=== PATIENT | female | born 1965 | race Caucasian/White ===

== ENCOUNTER → 2019-04-13 | Outpatient (CLI) | payer OTHER ==
--- NOTE | 2019-04-14 19:59 | MAM ---
EXAM DESCRIPTION: 3D Screening BILATERAL : Digital Mammography. CLINICAL HISTORY: 53 years Female Screening . No complaints. No personal or family history of breast cancer. Childbirth. Postmenopausal 25 years. HRT 5 or more years ago.. Lifetime risk of developing breast cancer (Tyrer-Cuzick model)(%): 7.5. COMPARISON: 2-D digital screening bilateral mammography 12/26/2012. TECHNIQUE: Bilateral CC and MLO projection full-field images, digital tomosynthesis mammographic technique. Bilateral digital 2-D full-field MLO images. CAD not available for tomosynthesis or 2-D images. FINDINGS: The breast parenchymal density pattern is: Scattered areas of fibroglandular density. No skin thickening or nipple retraction. The most dense tissues is in the anterior half of both breasts with scattered microcalcifications. Mild retraction of the dense fiber glandular tissues bilaterally compared to the prior study. No new focal, stellate mass or density, focal asymmetry , and no suspicious microcalcifications bilaterally. IMPRESSION: Benign exam. BIRAD CATEGORY: 2 BENIGN FINDINGS. RECOMMENDATIONS: FOLLOW UP: Routine digital bilateral mammographic screening, one year interval from March 2019. Written communication explaining the IMPRESSION and follow-up, will be mailed to the patient and referring health care provider. According to the [employer], yearly mammograms are recommended starting at age 40 and continuing as long as a woman is in good health. Any breast change noted on a breast self-exam should be reported promptly to the patient's healthcare provider. Breast MRI is recommended for women with an approximately 20-25% or greater lifetime risk of breast cancer, including women with a strong family history of breast or ovarian cancer and women who have been treated for Hodgkin's disease. A negative mammographic report should not delay tissue diagnosis in patients with significant clinical history or physical findings. Extremely dense breast tissue limits the sensitivity of digital mammography. Electronically signed by: Charles Macdonald MD 04/14/2019 7:57 PM CDT
== END ==
LOC: MAMMO 10:00
PROVIDERS: ATTEND Nurse Practitioner Family
DX: Z12.31 Encounter for screening mammogram for malignant neoplasm of breast (principal)

== ENCOUNTER 2020-02-12 12:52 | Emergency (ER) | payer OTHER ==
[2020-02-12] MEDS ORDERED: LIDOCAINE 1% 10 ML VIAL INJ ONE (13:27)
--- NOTE | 2020-02-12 14:47 | ED.PDOC ---
History of Present Illness - General Chief Complaint: Laceration Stated Complaint: laceration to index finger of LH Time Seen by Provider: 02/12/20 14:44 Source: patient, RN notes reviewed, Vital Signs reviewed Exam Limitations: no limitations - History of Present Illness Initial Comments: Patient is a 54-year-old white female who presents with complaints of left index laceration. Patient was preparing lunch and was slicing potatoes and cut her left index finger. Patient complains of pain and bleeding. She denies any numbness or tingling. The pain is burning in nature. Worse with palpation. Nonradiating. Patient is neurovascularly intact distally. The pain is moderate in intensity. Occurred: just prior to arrival Severity: moderate Pain Location: upper extremity - Left index finger dorsal aspect. Method of Injury: other - Cut with a knife Improving Factors: nothing Worsening Factors: movement Loss of Consciousness: no loss of consciousness Associated Symptoms (Fall): denies symptoms Allergies/Adverse Reactions: Allergies Codeine Allergy (Verified 06/29/13 07:10) Corticosteroids Allergy (Verified 05/14/14 09:36) Hydrocodone Allergy (Verified 06/29/13 07:10) Penicillins Allergy (Verified 06/29/13 07:10) Tramadol Allergy (Verified 06/29/13 07:10) Home Medications: Ambulatory Orders Atenolol 1 tab PO DAILY #0 06/29/13 Estropipate 0.75 mg PO DAILY 05/14/14 Estropipate 1.5 mg PO BEDTIME 05/14/14 Losartan Potassium & Hydrochlo [Losartan Potassium/Hydroc 100-25 mg] 1 tab PO DAILY 05/14/14 Rosuvastatin Calcium [Crestor] 10 mg PO BEDTIME 05/14/14 Sertraline HCl 50 mg PO BEDTIME 05/14/14 Review of Systems - Review of Systems Constitutional: States: no symptoms reported, see HPI. Denies: chills, fever, malaise EENTM: States: no symptoms reported. Denies: blurred vision, double vision Respiratory: States: no symptoms reported. Denies: cough, short of breath, stridor, wheezing Cardiology: States: no symptoms reported. Denies: chest pain, edema, palpitations, syncope Gastrointestinal/Abdominal: States: no symptoms reported. Denies: abdominal pain, constipation, diarrhea, nausea, vomiting Genitourinary: States: no symptoms reported Musculoskeletal: States: no symptoms reported. Denies: back pain, joint pain, neck pain Skin: States: see HPI, other - 2 and a centimeter laceration on the dorsal aspect of the left index finger, mid finger. Neurological: States: no symptoms reported. Denies: numbness, paresthesia, tingling Endocrine: States: no symptoms reported Hematologic/Lymphatic: States: no symptoms reported All other Systems: Reviewed and Negative Past Medical History (General) - Patient Medical History Hx Seizures: No Hx Stroke: No Hx Asthma: No Hx of COPD: No Hx Cardiac Disorders: Yes Hx Congestive Heart Failure: No Hx Pacemaker: No Hx Hypertension: Yes Hx Diabetes: No Hx MRSA: No - Social History Hx Alcohol Use: No Hx Substance Use: No Hx Physical Abuse: No Hx Emotional Abuse: No Family Medical History - Family History Mother Family History: No Known Physical Exam - Physical Exam General Appearance: Alert, Anxious, Comfortable, Well Developed, Well Groomed, Well Hydrated Head Injury: no evidence of injury Eye Exam: bilateral normal ENT Exam: hearing grossly normal, no dental injury Neck Exam: non-tender, full range of motion, normal alignment, normal inspection Cardiovascular/Respiratory: regular rate, rhythm, no M/R/G, normal peripheral pulses, no JVD, normal breath sounds Gastrointestinal/Abdominal: normal bowel sounds, non tender, soft, no or ganomegaly Back Exam: normal inspection, no CVA tenderness, no vertebral tenderness Extremity Exam: normal range of motion, other - Patient with a 2-1/2 cm laceration to the dorsal aspect of the right mid index finger. Bleeding is controlled. She is neurovascularly intact distally. There are no tendon lacerations. Patient with full range of motion of the finger. 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 Please see extremity exam for full description. - Shereen Coma Score Best Eye Response (Shereen): (4) open spontaneously Best Verbal Response (Ponce): (5) oriented Best Motor Response (Ponce): (6) obeys commands Shereen Total: 15 Progress - Progress Progress: Differential diagnosis: Skin laceration, tendon laceration, neurovascular bundle laceration, open fracture among others. 02/12/20 14:48 Patient tolerated suture repair of the skin laceration well. There were no complications or difficulties. Plan on discharge home with follow-up in 2 weeks for suture removal. Patient will require a tetanus shot as she has not had one in a long time. Plan on discharge home at this time. Patient agrees and understands with the plan of care. John Becerra M.D. #[id number] Procedures - Laceration/Wound Repair Left Dorsal Finger Wound Length (cm): 2.5 Wound's Depth, Shape: superficial, linear Wound Explored: clean Irrigated w/ Saline (cc's): 250 Betadine Prep?: No Anesthesia: 1% Lidocaine Volume Anesthetic (cc's): 5 Wound Debrided: minimal Wound Repaired With: sutures Suture Size/Type: 4:0, prolene Number of Sutures: 5 Sterile Dressing Applied?: Yes Splint Applied?: No Sling Applied?: No Progress: Estimated blood loss was less than 5 mL's. Patient tolerated the procedure well. Patient underwent a digital block prior to the procedure. For the digital block, skin was prepped with Betadine at the base of the left index finger. Once the Betadine had dried, a 27-gauge needle was introduced at the base of the lateral aspect of the index finger and a couple of cc of lidocaine were injected. A ring block was performed. Patient tolerated this procedure well. There was no complications and obtained total analgesia of the distal finger.. Departure - Departure Clinical Impression: Laceration, Accidental laceration Time of Disposition: 14:52 Disposition: Discharge to Home or Self Care Condition: Good Departure Forms: ED Discharge - Pt. Copy, Patient Portal Self Enrollment Instructions: DI for Laceration Repair, DI for Laceration Repair -- Simple Diet: resume usual diet Activity: increase activity as tolerated Referrals: Beverley Strange NP [Primary Care Provider] - 1-2 Weeks Home Medications: Ambulatory Orders Atenolol 1 tab PO DAILY #0 06/29/13 Estropipate 0.75 mg PO DAILY 05/14/14 Estropipate 1.5 mg PO BEDTIME 05/14/14 Losartan Potassium & Hydrochlo [Losartan Potassium/Hydroc 100-25 mg] 1 tab PO DAILY 05/14/14 Rosuvastatin Calcium [Crestor] 10 mg PO BEDTIME 05/14/14 Sertraline HCl 50 mg PO BEDTIME 05/14/14 Additional Instructions: Patient to return to the ED or her primary care physician in 2 weeks for suture removal.
[2020-02-12] MEDS ORDERED: TETANUS,DIPHTHERIA,PERTUSSIS 1 EA SYG IM ONE (14:54)
[2020-02-12] MEDS ORDERED: NEOMYCIN-BACITRACIN-POLYMYXIN 0.9 GM UD TOP ONE (15:07)
[2020-02-12 15:13] VITALS: BP 136/85; TEMP 97.1; O2SAT 100
== END 2020-02-12 15:10 | disposition home or self-care (01) ==
LOC: ER 12:52
DX: S61.211A Laceration without foreign body of left index finger without damage to nail, initial encounter (principal); I10 Essential (primary) hypertension; W26.0XXA Contact with knife, initial encounter; Y92.9 Unspecified place or not applicable; Y93.G1 Activity, food preparation and clean up

== ENCOUNTER 2020-03-05 21:37 | Emergency (ER) | payer OTHER ==
[2020-03-05] MEDS ORDERED: CHLORHEXIDINE GLUCONATE 4 % 15 ML UD TOP ONE (21:50)
--- NOTE | 2020-03-05 22:25 | ED.PDOC ---
History of Present Illness - General Chief Complaint: General Stated Complaint: bleeding from a scratch to thigh Time Seen by Provider: 03/05/20 22:23 Source: patient, RN notes reviewed, Vital Signs reviewed Exam Limitations: no limitations - History of Present Illness Initial Comments: Patient is a 54-year-old white female who presents with complaints of left lateral leg bleeding at the knee. Patient has a varicose vein there and scratched it earlier and it started bleeding and she could not get it stopped. Patient denies being on any blood thinners. Patient only complains of some mild burning sensation there. Intensity is mild, there is no radiation, nothing makes it worse or better. Timing/Duration: 1-3 hours Severity: mild Improving Factors: nothing Worsening Factors: nothing Associated Symptoms: denies symptoms Allergies/Adverse Reactions: Allergies Codeine Allergy (Verified 06/29/13 07:10) Corticosteroids Allergy (Verified 05/14/14 09:36) Hydrocodone Allergy (Verified 06/29/13 07:10) Penicillins Allergy (Verified 06/29/13 07:10) Tramadol Allergy (Verified 06/29/13 07:10) Home Medications: Ambulatory Orders Atenolol 1 tab PO DAILY #0 06/29/13 Estropipate 0.75 mg PO DAILY 05/14/14 Estropipate 1.5 mg PO BEDTIME 05/14/14 Losartan Potassium & Hydrochlo [Losartan Potassium/Hydroc 100-25 mg] 1 tab PO DAILY 05/14/14 Rosuvastatin Calcium [Crestor] 10 mg PO BEDTIME 05/14/14 Sertraline HCl 50 mg PO BEDTIME 05/14/14 Review of Systems - Review of Systems Constitutional: States: no symptoms reported, see HPI. Denies: chills, fever, malaise EENTM: States: no symptoms reported Respiratory: States: no symptoms reported. Denies: cough, short of breath, stridor Cardiology: States: no symptoms reported. Denies: chest pain, palpitations, syncope Gastrointestinal/Abdominal: States: no symptoms reported. Denies: abdominal pain, diarrhea, nausea, vomiting Genitourinary: States: no symptoms reported Musculoskeletal: States: no symptoms reported. Denies: back pain, neck pain Skin: States: see HPI, other - Eating from a varicose vein. Neurological: States: no symptoms reported. Denies: tingling, tremors, weakness Endocrine: States: no symptoms reported Hematologic/Lymphatic: States: no symptoms reported All other Systems: No Change from Baseline Past Medical History (General) - Patient Medical History Hx Seizures: No Hx Stroke: No Hx Dementia: No Hx Asthma: No Hx of COPD: No Hx Cardiac Disorders: Yes Hx Congestive Heart Failure: No Hx Pacemaker: No Hx Hypertension: Yes Hx Thyroid Disease: No Hx Diabetes: No Hx Gastroesophageal Reflux: No Hx Renal Disease: No Hx Cancer: No Hx of HIV: No Hx Hepatitis C: No Hx MRSA: No Surgical History: appendectomy, tonsillectomy, Hysterectomy - Vaccination History Hx Tetanus, Diphtheria Vaccination: Yes Hx Influenza Vaccination: No Hx Pneumococcal Vaccination: No Immunizations Up to Date: Yes - Social History Hx Tobacco Use: No Hx Chewing Tobacco Use: No Hx Alcohol Use: No Hx Substance Use: No Hx Substance Use Treatment: No Hx Depression: Yes Feels Threatened In Home Enviroment: No Feels Threatened In a Relationship: No Hx Physical Abuse: No Hx Emotional Abuse: No Hx Suspected Abuse: No - Activities of Daily Living Hospice Agency (if applicable):: None - Female History Patient is a Female of Child Bearing Age (10 -59 yrs old): No - hyst Family Medical History - Family History Mother Family History: No Known Physical Exam - Physical Exam General Appearance: Alert, Comfortable, Obese, Well Developed, Well Groomed, Well Hydrated, Well Nourished Eye Exam: bilateral normal Ears, Nose, Throat: hearing grossly normal, normal ENT inspection, normal pharynx Neck: non-tender, full range of motion, supple, normal inspection Respiratory: chest non-tender, lungs clear, normal breath sounds, no respiratory distress, no accessory muscle use Cardiovascular/Chest: normal peripheral pulses, regular rate, rhythm, no edema Peripheral Pulses: radial,right: 2+, radial,left: 2+ Gastrointestinal/Abdominal: normal bowel sounds, non tender, soft Back Exam: normal inspection, no CVA tenderness, no vertebral tenderness Extremity: normal range of motion, non-tender, other - Mild venous bleeding from the left lateral knee at the site of a varicose vein. Bleeding was controlled with a compression bandage. 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 03/05/20 22:26 Bleeding is controlled with compression bandage. Plan on discharge home with follow-up with her surgeon later this week. Patient is scheduled for varicose surgery in [place]. I discussed this plan of care with the patient she voices understanding and agreement. John Becerra M.D. #[id number] Departure - Departure Clinical Impression: Bleeding from varicose veins of left lower extremity Varicose veins of both lower extremities Qualifiers: Varicose vein complication: unspecified Qualified Code(s): I83.93 - Asymptomatic varicose veins of bilateral lower extremities Time of Disposition: 22:27 Disposition: Discharge to Home or Self Care Condition: Good Departure Forms: ED Discharge - Pt. Copy, Patient Portal Self Enrollment Instructions: Varicose Veins (DC) Diet: resume usual diet Activity: increase activity as tolerated Referrals: Beverley Strange NP [Primary Care Provider] - 1-5 Days Home Medications: Ambulatory Orders Atenolol 1 tab PO DAILY #0 06/29/13 Estropipate 0.75 mg PO DAILY 05/14/14 Estropipate 1.5 mg PO BEDTIME 05/14/14 Losartan Potassium & Hydrochlo [Losartan Potassium/Hydroc 100-25 mg] 1 tab PO DAILY 05/14/14 Rosuvastatin Calcium [Crestor] 10 mg PO BEDTIME 05/14/14 Sertraline HCl 50 mg PO BEDTIME 05/14/14
[2020-03-05 23:37] VITALS: BP 105/59; TEMP 97.2; O2SAT 99
== END 2020-03-05 22:40 | disposition home or self-care (01) ==
LOC: ER 21:37
DX: I83.93 Asymptomatic varicose veins of bilateral lower extremities (principal); I10 Essential (primary) hypertension

== ENCOUNTER → 2020-05-31 | Outpatient (CLI) | payer OTHER ==
--- NOTE | 2020-06-03 13:58 | MAM ---
EXAM DESCRIPTION: 3D Screening BILATERAL : Digital Mammography. CLINICAL HISTORY: 54 years Female ANNUAL SCREENING . No complaints. No family history breast cancer. Menarche age 10. Childbirth age 19. Menopause age unknown. HRT current user.. Lifetime risk of developing breast cancer (Tyrer-Cuzick model)(%): 7.9. COMPARISON: Bilateral screening digital breast tomosynthesis March 2019. TECHNIQUE: Bilateral CC and MLO projection full-field images, digital tomosynthesis mammographic technique Bilateral digital 2-D full-field MLO images. CAD available for 2-D images. FINDINGS: The breast parenchymal density pattern is: Heterogeneously dense breast tissue, which may obscure small masses. No skin thickening or nipple retraction. Dense fibroglandular tissue again noted in the anterior two thirds of the breast. Solitary microcalcifications. Left axillary lymph nodes. Coarse calcifications bilaterally. Intramammary lymph nodes. No new focal, stellate mass or density, focal asymmetry , and no suspicious microcalcifications bilaterally. Stable mammograms compared to prior study. IMPRESSION: Benign exam. BIRAD CATEGORY: 2 BENIGN FINDINGS. RECOMMENDATIONS: FOLLOW UP: Routine digital bilateral mammographic screening, one year interval from May 2020. Written communication explaining the IMPRESSION and follow-up, will be mailed to the patient and referring health care provider. According to the [employer], yearly mammograms are recommended starting at age 40 and continuing as long as a woman is in good health. Any breast change noted on a breast self-exam should be reported promptly to the patient's healthcare provider. Breast MRI is recommended for women with an approximately 20-25% or greater lifetime risk of breast cancer, including women with a strong family history of breast or ovarian cancer and women who have been treated for Hodgkin's disease. A negative mammographic report should not delay tissue diagnosis in patients with significant clinical history or physical findings. Extremely dense breast tissue limits the sensitivity of digital mammography. Electronically signed by: Charles Macdonald MD 06/03/2020 1:57 PM CDT
== END ==
LOC: MAMMO 11:11
PROVIDERS: ATTEND General Practice
DX: Z12.31 Encounter for screening mammogram for malignant neoplasm of breast (principal)

== ENCOUNTER 2020-09-27 15:24 | Observation (INO) | payer OTHER ==
[2020-09-27] MEDS ORDERED: SODIUM CHLORIDE 0.9% (FLUSH) 10 ML SYG IV PRN ×2 (15:32→22:27)
[2020-09-27] MEDS ORDERED: SODIUM CHLORIDE 0.9% 1000ML 1,000 ML IVS ONE ×2 (15:34→17:15)
--- NOTE | 2020-09-27 15:34 | ED.PDOC ---
History of Present Illness - General Time Seen by Provider: 09/27/20 15:32 Source: patient - History of Present Illness Initial Comments: Seen shortly after ED arrival at 16:10. 55-year-old female who presents with chief complaint of shortness of breath and fever. Patient reports acute illness 5 days ago with gradual worsening. Now reports constant shortness of breath which is marked even at rest, worsens with just short ambulation around her home and having to stop and rest. She additionally reports frequent nonproductive cough, intermittent fevers with T- max 101 Fahrenheit at home, intermittent watery diarrhea approximately 7 episodes per day for the past 5 days, intermittent generalized abdominal discomfort, poor appetite, loss of taste and smell, mild sore throat, headaches, body aches, nausea without emesis, intermittent tightness in the center of her chest which is worse with coughing. She has not taken any medicine for her symptoms. Reports recently she was around family who have tested positive for COVID-19. PCP is Thao Strange at Dr. Romero's office. Allergies/Adverse Reactions: Allergies Codeine Allergy (Verified 09/27/20 16:04) Corticosteroids Allergy (Verified 09/27/20 16:04) Hydrocodone Allergy (Verified 09/27/20 16:04) Penicillins Allergy (Verified 09/27/20 16:04) Tramadol Allergy (Verified 09/27/20 16:04) Home Medications: Ambulatory Orders Atenolol 50 mg PO DAILY 09/27/20 Review of Systems - Review of Systems Review of Systems: 09/27/20 16:35 as per HPI All other Systems: Reviewed and Negative Past Medical History (General) - Patient Medical History Hx Seizures: No Hx Stroke: No Hx Dementia: No Hx Asthma: No Hx of COPD: No Hx Cardiac Disorders: Yes Hx Congestive Heart Failure: No Hx Pacemaker: No Hx Hypertension: Yes Hx Thyroid Disease: No Hx Diabetes: No Hx Gastroesophageal Reflux: No Hx Renal Disease: No Hx Cancer: No Hx of HIV: No Hx Hepatitis C: No Hx MRSA: No - Vaccination History Hx Tetanus, Diphtheria Vaccination: Yes Hx Influenza Vaccination: No Hx Pneumococcal Vaccination: No - Social History Hx Tobacco Use: No Hx Chewing Tobacco Use: No Hx Alcohol Use: No Hx Substance Use: No Hx Substance Use Treatment: No Hx Depression: Yes Hx Physical Abuse: No Hx Emotional Abuse: No Hx Suspected Abuse: No Family Medical History - Family History Mother Family History: No Known Physical Exam - Physical Exam General Appearance: Alert, Comfortable, Obese Eye Exam: bilateral normal Ears, Nose, Throat: hearing grossly normal, normal ENT inspection, normal pharynx Neck: non-tender, full range of motion, supple, normal inspection Respiratory: chest non-tender, lungs clear, normal breath sounds, no respiratory distress, no accessory muscle use Cardiovascular/Chest: normal peripheral pulses, regular rate, rhythm, no edema, no gallop, no JVD, no murmur Peripheral Pulses: radial,right: 2+, radial,left: 2+ Gastrointestinal/Abdominal: non tender, soft, abnormal bowel sounds - increased bowel sounds Back Exam: normal inspection, no CVA tenderness, no vertebral tenderness Extremity: normal range of motion, non-tender, normal inspection, no calf tenderness, normal capillary refill, pedal edema - 1+ BL LE non-pitting edema noted 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 Consider COVID-19, influenza, other viral infection. Consider also strep pharyngitis, pneumonia, CHF, ACS, UTI, gastroenteritis, colitis, other -Patient with 99% SPO2 on room air, no acute respiratory distress, blood pressure noted elevated 200/100s on arrival, reports intermittent chest tightness at home but none currently -Obtain cardiac work-up, rapid Covid and flu testing, blood work -Place PIV, 1 L normal saline bolus, Zofran 4 mg IV 09/27/20 19:32 -Pt has remained stable. However, her BP has remained poorly controlled despite now Labetalol 30 mg IV given in ED. BP currently 187/89. Pt denies any current chest pain. She has had 2 episodes of watery diarrhea in the ED. Repeat EKG is unchanged and trop is 0.04 -> 0.04. CXR reveals some cardiomegaly and mild vascular congestion. BNP also is slightly elevated >300. Findings may be c/w underlying CHF. -Labs otherwise reveal COVID-19 positive and strep positive. Otherwise labs are c/w COVID-19 infection. Discussed all findings with pt & her daughter. Advise hospital admission for hypertensive urgency, COVID-19 PNA, gastroenteritis, strep pharyngitis. They agree. Sylvia De La Cruz accepts pt for observation admit. Will give additional Labetalol 10 mg IV prior to admit. Azithromycin 500 mg PO given for strep (PCN allergic). Pt also has steroids listed as allergy in chart. Sesar Smalls MD Billing #[id number] 09/27/20 15:32 Telemetry .ONCE Sodium Chloride 0.9% (Flush) [Saline Flush Syringe] 10 ml IV PRN PRN Pulse Oximetry Assessment DAILY 09/27/20 15:45 EKG STAT 09/27/20 17:45 EKG STAT 09/28/20 09:00 Pulse Ox Daily Laboratory Results - last 24 hr 09/27/20 09/27/20 09/27/20 15:40 15:58 15:58 WBC 3.0 L RBC 3.97 L Hgb 11.7 L Hct 35.0 L MCV 88.2 MCH 29.5 MCHC 33.5 RDW 12.4 Plt Count 179 MPV 7.9 Absolute Neuts (auto) 2.00 Absolute Lymphs (auto) 0.60 L Absolute Monos (auto) 0.40 Absolute Eos (auto) 0.00 Absolute Basos (auto) 0.00 Neutrophils % 65.7 Lymphocytes % 21.3 Monocytes % 11.9 H Eosinophils % 0.7 L Basophils % 0.4 D-Dimer, Quantitative 377.0 Sodium Potassium Chloride Carbon Dioxide Anion Gap BUN Creatinine BUN/Creatinine Ratio Random Glucose Serum Osmolality Calcium Troponin I B-Natriuretic Peptide Urine Color Urine Appearance Urine pH Ur Specific [place] Urine Protein Urine Glucose (UA) Urine Ketones Urine Blood Urine Nitrite Urine Bilirubin Urine Urobilinogen Ur Leukocyte Esterase Urine RBC Urine WBC Ur Epithelial Cells Urine Bacteria Group A Strep Rapid Positive H 09/27/20 09/27/20 09/27/20 15:58 15:58 15:58 WBC RBC Hgb Hct MCV MCH MCHC RDW Plt Count MPV Absolute Neuts (auto) Absolute Lymphs (auto) Absolute Monos (auto) Absolute Eos (auto) Absolute Basos (auto) Neutrophils % Lymphocytes % Monocytes % Eosinophils % Basophils % D-Dimer, Quantitative Sodium 137 Potassium 3.4 L Chloride 101 Carbon Dioxide 27 Anion Gap 12.4 BUN 11 Creatinine 0.75 BUN/Creatinine Ratio 14.7 Random Glucose 81 Serum Osmolality 272.2 L Calcium 8.1 L Troponin I 0.04 B-Natriuretic Peptide 392.0 H* Urine Color Urine Appearance Urine pH Ur Specific [place] Urine Protein Urine Glucose (UA) Urine Ketones Urine Blood Urine Nitrite Urine Bilirubin Urine Urobilinogen Ur Leukocyte Esterase Urine RBC Urine WBC Ur Epithelial Cells Urine Bacteria Group A Strep Rapid 09/27/20 09/27/20 16:55 17:52 WBC RBC Hgb Hct MCV MCH MCHC RDW Plt Count MPV Absolute Neuts (auto) Absolute Lymphs (auto) Absolute Monos (auto) Absolute Eos (auto) Absolute Basos (auto) Neutrophils % Lymphocytes % Monocytes % Eosinophils % Basophils % D-Dimer, Quantitative Sodium Potassium Chloride Carbon Dioxide Anion Gap BUN Creatinine BUN/Creatinine Ratio Random Glucose Serum Osmolality Calcium Troponin I 0.04 B-Natriuretic Peptide Urine Color Yellow Urine Appearance Clear Urine pH 7.0 Ur Specific [place] 1.025 Urine Protein 30 Urine Glucose (UA) Negative Urine Ketones 40 H Urine Blood Negative Urine Nitrite Negative Urine Bilirubin Negative Urine Urobilinogen 1.0 Ur Leukocyte Esterase Negative Urine RBC 0 Urine WBC 0-1 Ur Epithelial Cells 5-10 Urine Bacteria Rare Group A Strep Rapid - EKG/XRAY/CT EKG: Sinus - Normal sinus rhythm, heart rate 75, no ST elevations or Q waves noted, axis normal, intervals normal, compared to 04/2014 EKG appears largely unchanged XRAY: chest - Reveals very faint perihilar and bibasilar hazy opacities consistent with COVID-19 pneumonia per my read Departure - Departure Clinical Impression: Hypertensive urgency, COVID-19, Gastroenteritis, Strep pharyngitis Time of Disposition: 19:32 Disposition: Admit Patient Condition: Fair Diet: low fat, low cholesterol, low salt diet Referrals: Beverley Strange NP [Primary Care Provider] - 1-2 Weeks Home Medications: Ambulatory Orders Atenolol 50 mg PO DAILY 09/27/20 Decision To Admit - Decistion To Admit Decision to Admit Reason: Admit from ER Decision to Admit Date: 09/27/20 Decision to Admit Time: 19:32
[2020-09-27] MEDS ORDERED: LABETALOL INJ 5 MG/ML VIAL IV ONE ×3 (16:31→19:24)
[2020-09-27] MEDS ORDERED: AZITHROMYCIN 250 MG TAB PO ONE (16:32)
[2020-09-27] MEDS ORDERED: MORPHINE SULFATE INJ 10 MG/ML VIAL IV ONE (17:15)
--- NOTE | 2020-09-27 17:24 | RAD ---
EXAM DESCRIPTION: Chest,1 View CLINICAL HISTORY: fever, dyspnea, chest pain COMPARISON: 14 May 2014 TECHNIQUE: AP portable chest FINDINGS: Cardiomegaly is evident. Pulmonary vascular congestion is observed. No overt pulmonary edema is seen. No pleural fluid is identified. IMPRESSION: Cardiomegaly and pulmonary vascular congestion are observed without evidence of overt pulmonary edema. Electronically signed by: Nam Prince MD 09/27/2020 5:23 PM OPERATIONS CONTROLLER
[2020-09-27] MEDS ORDERED: ONDANSETRON INJ 4 MG/2 ML VIAL IV PRN (22:27)
[2020-09-27] MEDS ORDERED: IV SET AND CAP CHANGE INJ INJ SCH (22:30)
[2020-09-27] MEDS ORDERED: LABETALOL INJ 5 MG/ML VIAL IV PRN (22:31)
[2020-09-27] MEDS ORDERED: cloNIDine HCL 0.1 MG TAB PO PRN (22:31)
[2020-09-27] MEDS ORDERED: PREGABALIN 100 MG CAP ONE (22:46)
[2020-09-27] MEDS ORDERED: ATENOLOL 25 MG TAB ONE (22:47)
[2020-09-27] MEDS ORDERED: NYSTATIN POWDER 15GM BTTL TOP ONE (22:47)
[2020-09-27] MEDS ORDERED: PREGABALIN 25 MG CAP ONE (22:47)
[2020-09-27] MEDS: NYSTATIN POWDER 15GM BTTL TOP SCH (22:50)
[2020-09-27] MEDS: ATENOLOL 25 MG TAB PO SCH (22:50)
[2020-09-27] MEDS: NON-FORMULARY MEDICATION 1 EA MIS (Pregabalin [Lyrica] 150 MG) PO SCH (22:50)
[2020-09-27] MEDS ORDERED: TEMAZEPAM 15 MG CAP ONE (23:04)
[2020-09-27] MEDS ORDERED: ACETAMINOPHEN 325 MG TAB ONE (23:05)
[2020-09-27] MEDS ORDERED: TEMAZEPAM 15 MG CAP PO PRN (23:06)
[2020-09-27] MEDS: ACETAMINOPHEN 325 MG TAB PO PRN (23:09)
[2020-09-28] MEDS ORDERED: SODIUM CHLORIDE 0.9% (FLUSH) 10 ML SYG IV SCH (09:00)
[2020-09-28] MEDS ORDERED: PARoxetine HCL 20 MG TAB PO SCH (09:00)
[2020-09-28] MEDS ORDERED: NON-FORMULARY MEDICATION 1 EA MIS (Celecoxib [Celecoxib] 200 MG) PO SCH (09:00)
[2020-09-28] MEDS ORDERED: VALSARTAN 80 MG TAB PO SCH (09:00)
[2020-09-28] MEDS ORDERED: PARoxetine HCL 20 MG TAB ONE (09:08)
[2020-09-28] MEDS ORDERED: PREGABALIN 100 MG CAP ONE (09:09)
[2020-09-28] MEDS ORDERED: PREGABALIN 25 MG CAP ONE (09:09)
[2020-09-28] MEDS ORDERED: VALSARTAN 80 MG TAB ONE (09:09)
[2020-09-28] MEDS ORDERED: ATENOLOL 25 MG TAB ONE (09:09)
[2020-09-28] MEDS ORDERED: CELECOXIB 100 MG CAP ONE (09:10)
[2020-09-28] MEDS ORDERED: ACETAMINOPHEN 325 MG TAB ONE (09:20)
[2020-09-28] MEDS: ACETAMINOPHEN 325 MG TAB PO PRN (09:24)
[2020-09-28] MEDS: ATENOLOL 25 MG TAB PO SCH (09:26)
[2020-09-28] MEDS: NON-FORMULARY MEDICATION 1 EA MIS (Pregabalin [Lyrica] 150 MG) PO SCH (09:32)
[2020-09-28] MEDS: NYSTATIN POWDER 15GM BTTL TOP SCH ×3 (09:33→16:58)
[2020-09-28] MEDS ORDERED: CEFDINIR 300 MG CAP PO SCH (10:30)
[2020-09-28] MEDS ORDERED: CEFDINIR 300 MG CAP ONE (11:31)
[2020-09-28] MEDS ORDERED: POTASSIUM CHLORIDE 20 MEQ TAB PO ONE (13:14)
[2020-09-28] MEDS ORDERED: POTASSIUM CHLORIDE 20 MEQ TAB ONE (13:51)
[2020-09-28 19:12] VITALS: BP 174/84; TEMP 98.7; O2SAT 98
--- NOTE | 2020-09-28 19:47 | SSS ---
SUPERVISING PHYSICIAN: Dmitry Ricks M.D. DISCHARGE DIAGNOSES: 1. Hypertensive urgency. 2. COVID-19 pneumonitis. 3. Streptococcal pharyngitis. 4. Fibromyalgia. 5. Peripheral neuropathy with left sided sciatica. HISTORY OF PRESENT ILLNESS: This is a 55 year-old female patient who has a history of fibromyalgia, hypertension as well as morbid obesity. She presented to the Emergency Room after complaining of shortness of breath with fever. She started feeling poorly about 5 days prior to coming to the Emergency Room. She also had a nonproductive cough with a temperature that went up to 101. She also had several episodes of diarrhea that has improved. She had been around people that were positive for COVID-19. In the Emergency Room, her vital signs were temperature 98.5 with heart rate 78, blood pressure 226/93, respiratory rate 22, O2 saturation 98% on room air. She was given some Labetalol for her elevated blood pressure. WBCs were low at 3,000 with hemoglobin 11.7, hematocrit 35. D- dimer was 377. Electrolytes were was negative with the exception of her potassium was low at 3.4 and calcium was low at 8.1. BNP was 392 with troponin 0.04. Urinalysis was unremarkable. Group A Strep was positive. Influenza type A and B per PCR were both negative. Nasal swab was positive for COVID-19. She was given another dose of Labetalol as her blood pressure came down but then went back up. She was given fluids as well as some Zofran. Her blood pressure somewhat stabilized but due to having COVID as well as hypertensive urgency, she was placed in observation in the hospital to monitor her blood pressure. PAST MEDICAL HISTORY: 1. Hypertension. 2. Fibromyalgia. 3. Peripheral neuropathy. PAST SURGICAL HISTORY: 1. Hysterectomy. 2. Hernia repair. 3. Lap band surgery. 4. Appendectomy. 5. Cholecystectomy. 6. Tonsillectomy. 7. Bilateral ankle repair. 8. Left shoulder repair. 9. Bilateral carpal tunnel release. OUTPATIENT MEDICATIONS: 1. Vitamin D. 2. Cyanocobalamin. 3. Estradiol. 4. Hydroxyzine. 5. Celebrex. 6. Hydroxychloroquine. 7. Paxil. 8. Lyrica. ALLERGIES: CODEINE, CORTICOSTEROIDS, HYDROCODONE, PENICILLIN AND TRAMADOL. SOCIAL HISTORY: She lives in [place]. She denies ETOH, tobacco or illicit drug use. REVIEW OF SYSTEMS: GENERAL: Positive for fever and fatigue. Negative for weight changes. HEENT: Negative for loss of taste and smell, sore throat. Negative for ear pain or vision changes. RESPIRATORY: Positive for coughing and shortness of breath. Negative for wheezing. CARDIAC: Negative for chest pain, palpitations or tachycardia. GASTROINTESTINAL: Positive for nausea, vomiting and diarrhea. Negative for constipation. GENITOURINARY: Negative for hematuria, dysuria or polyuria. SKIN: Negative for lesions or rashes. NEUROLOGIC: Positive for weakness and headache. Negative for seizures. PHYSICAL EXAMINATION: VITAL SIGNS: Temperature 98.2, heart rate 68, blood pressure 151/82, respiratory rate 20, O2 saturation 97% on room air. GENERAL: This is a 55 year-old morbidly obese female lying in her hospital bed. She is in no acute distress. HEENT: Normocephalic, atraumatic. Pupils are equal and reactive. Oropharynx is clear. NECK: Supple. RESPIRATORY: Diminished throughout. CARDIOVASCULAR: Regular rate and rhythm. GASTROINTESTINAL: Abdomen is soft, nondistended, nontender. Bowel sounds are positive. SKIN: [place], warm and dry. NEUROLOGIC: Awake, alert and oriented times three. Cranial nerves II-XII are grossly intact as tested. LABORATORY: Followup labs this morning show WBC of 2.8, hemoglobin 11.1, hematocrit 33.2. D-dimer 363. Potassium 3.3, calcium 7.9, CRP 5.5. Chest x-ray shows cardiomegaly and pulmonary vascular congestion observed without evidence of overt pulmonary edema. HOSPITAL COURSE: The patient was placed in the hospital in observation. She was restarted on her Tenormin, although it was increased to 50 mg b.i.d. I did add Valsartan 80 mg daily. She also had clonidine and Labetalol as needed, although after she came to the floor no further dosing was required. This morning, she received monoclonal antibodies for her COVID. I also started her on Cefdinir for her Strep infection. Her lab is stable. Her vital signs are stable. The patient will be discharged home in stable condition. DISCHARGE PLAN: The patient will be discharged home in stable condition. She is to resume her previous diet and increase her activity as tolerated. She is to make a followup appointment with Thao Strange within the next 1 to 2 weeks. She is to monitor her blood pressure daily. In addition to her routine home medications, she is to increase her Tenormin to 50 mg b.i.d. We have added Valsartan 80 mg daily. She will also have 10 days of Cefdinir for her Strep infection. She is to return to the hospital or followup with Thao Strange for any problems or complications. DISCHARGE MEDICATIONS: 1. Vitamin D. 2. Hydroxyzine. 3. Hydroxychloroquine. 4. Celebrex. 5. Lyrica. 6. Cyanocobalamin. 7. Estradiol. 8. Paxil. 9. Atenolol. 10. Valsartan. 11. Nystatin. 12. Cefdinir. #[id number] [facility]
== END 2020-09-28 18:00 | disposition home or self-care (01) ==
LOC: ER 15:24 → MS 22:19
PROVIDERS: ADMIT Nurse Practitioner Acute Care; ATTEND Nurse Practitioner Acute Care
DX: I16.0 Hypertensive urgency (principal); I10 Essential (primary) hypertension; U07.1 COVID-19; J12.82 Pneumonia due to coronavirus disease 2019; J02.0 Streptococcal pharyngitis; B95.0 Streptococcus, group A, as the cause of diseases classified elsewhere; M79.7 Fibromyalgia; G62.9 Polyneuropathy, unspecified; M54.32 Sciatica, left side; K52.9 Noninfective gastroenteritis and colitis, unspecified; E87.6 Hypokalemia; E66.01 Morbid (severe) obesity due to excess calories; Z68.41 Body mass index [BMI] 40.0-44.9, adult; Z79.899 Other long term (current) drug therapy; Z88.0 Allergy status to penicillin; Z88.5 Allergy status to narcotic agent; Z88.6 Allergy status to analgesic agent; Z88.8 Allergy status to other drugs, medicaments and biological substances
CPT/HCPCS: 96374; 96376; Q0144; J7030; A4216; 85379 ×2; 80048; 80053; 87880; 36415 ×4; 81001; 86140; 85025 ×2; 83735; 84484 ×2; 83880; 71045; 94760; 99285; 93005 ×2; G0378; 87502; 87635